=== PATIENT | male | born 1975 | race Caucasian/White ===

== ENCOUNTER 2018-07-14 11:19 | Inpatient (IN) | payer MEDICAID ==
[~2018-07-14] VITALS: Ht 160 cm; Wt 43.0 kg
[2018-07-14 11:54] LABS: HEMATOCRIT 40.8 % (41-53); HEMOGLOBIN 12.9 g/dL (13.5-17.5); MEAN CORPUSCULAR HEMOGLOBIN 34.2 pg (26.0-34.0); MEAN CORPUSCULAR HGB CONC 31.6 G/dL (31.0-37.0); MEAN CORPUSCULAR VOLUME 108 fL (80-100); PLATELET COUNT (AUTO) 286 K/uL (150-450); RED BLOOD CELL COUNT(AUTO) 3.78 MIL/uL (4.50-5.90); RED CELL DISTRIBUTION WIDTH 13.5 % (11.5-14.5)
[2018-07-14 11:55] LABS: ABG A-A DIFF O2 39.4 mmHg (10-20.0); ABG BASE EXCESS -25.8 mmol/L (-2.0-3.0); ABG CARBOXYHEMOGLOBIN 0.7 % (0.0-1.5); ABG METHEMOGLOBIN 0.3 % (0.0-1.5); ABG OXYGEN CONTENT 17.3 mL/dL (15.0-23.0); ABG OXYGEN SATURATION 95.8 % (95.0-98.0); ABG OXYHEMOGLOBIN 94.8 % (94.0-100.0); ABG PH 7.121 (7.35-7.450); ABG TOTAL HEMOGLOBIN 12.9 G/dL (12.0-18.0); PO2, ARTERIAL BG 97.1 mmHg (88.0-96.0); SOURCE, BLOOD GAS ARTERIAL; TEMPERATURE, FAHRENHEIT, BG 97.4 FAHREN (96.0-98.6)
[2018-07-14 11:56] LABS: ABG HCO3 7.9 mmol/L (22.0-26.0); ABG PCO2 11 mmHg (35-45); SITE, BLOOD GAS LFT RADIAL
[2018-07-14] MEDS ORDERED: SODIUM CHLORIDE 0.9% 1,000 ML IV ONE (12:00)
[2018-07-14] MEDS ORDERED: INSULIN REGULAR, HUMAN 100 UNITS/ML IVP ONE (12:00)
[2018-07-14] MEDS ORDERED: INSULIN REGULAR, HUMAN 100 UNITS in SODIUM CHLORIDE 0.9% 99 ML IV PRN ×4 (12:08→22:19)
[2018-07-14] MEDS ORDERED: SODIUM CHLORIDE 0.45% 1,000 ML IV PRN ×2 (12:08→22:19)
[2018-07-14] MEDS ORDERED: POTASSIUM CHLORIDE 40 MEQ in SODIUM CHLORIDE 0.45% 1,000 ML IV PRN ×2 (12:08→22:19)
[2018-07-14] MEDS ORDERED: POTASSIUM CHL 20 MEQ/0.45% NS 1,000 ML IV PRN ×2 (12:08→22:19)
[2018-07-14] MEDS ORDERED: DEXTROSE 5%-0.45% SODIUM CHL 1,000 ML IV PRN ×2 (12:08→22:19)
[2018-07-14 12:10] LABS: ALBUMIN 3.4 g/dL (3.4-5.0); BILIRUBIN,TOTAL 0.7 mg/dL (0.1-1.0); CALCIUM, TOTAL 9.6 mg/dL (8.8-10.5); CREATININE 1.38 mg/dL (0.60-1.30); POTASSIUM 4.1 mmol/L (3.5-5.1); TOTAL PROTEIN, SERUM 9.2 g/dL (6.4-8.2)
[2018-07-14] MEDS ORDERED: DEXTROSE 50%-WATER 25 GM/50 ML SYRINGE IVP PRN ×2 (12:15→22:30)
[2018-07-14] MEDS ORDERED: SODIUM BICARBONATE [ADULT] 8.4% 50 MEQ/50 ML SYRINGE IVP ONE (12:15)
[2018-07-14] MEDS ORDERED: INSULIN REGULAR, HUMAN 100 UNITS/ML IVP PRN ×2 (12:15→22:30)
[2018-07-14 12:32] LABS: BAND NEUTROPHILS % (MANUAL) 17 % (0-5); LYMPHOCYTES % (MANUAL) 7 % (22-44); METAMYELOCYTES % 1 % (0-0); MONOCYTES % (MANUAL) 7 % (2-9); SEGMENTED NEUTROPHILS % 68 % (40-70)
[2018-07-14 12:34] LABS: INR 0.9 (0.9-1.1); PROTHROMBIN TIME 9.4 SEC (9.4-11.6)
[2018-07-14] MEDS: SODIUM CHLORIDE 0.9% 1,000 ML IV SCH ×3 (12:35→22:00)
[2018-07-14] MEDS ORDERED: CefTRIAXone SODIUM 2 GM in DEXTROSE 5%-WATER 50 ML IV ONE (13:00)
[2018-07-14 13:22] LABS: GLUCOSE, URINE (UA) >=1000 mg/dL (NEGATIVE); KETONES,URINE >=80 mg/dL (NEGATIVE); LEUKOCYTE ESTERASE ,URINE NEGATIVE (NEGATIVE); NITRATE,URINE NEGATIVE (NEGATIVE); PROTEIN,URINE SEE CONFIRM (NEGATIVE); UROBILINOGEN,URINE 0.2 mg/dL (<=1.0)
[2018-07-14] MEDS ORDERED: AZITHROMYCIN 500 MG/NS 250 ML IV ONE (13:30)
[2018-07-14 13:52] LABS: INFLUENZA TYPE A NEGATIVE FOR TYPE A (NEGATIVE); INFLUENZA TYPE B NEGATIVE FOR TYPE B (NEGATIVE)
[2018-07-14 13:53] LABS: APPEARANCE,URINE HAZY (CLEAR); BILIRUBIN,URINE PRELIM. POSITIVE (NEGATIVE)
[2018-07-14 13:54] LABS: BACTERIA,URINE None Seen /HPF (None Seen); OCCULT BLOOD,URINE SMALL (NEGATIVE); RBC,URINE 0-2 /HPF (0-2); SULFOSALICYLIC ACID,URINE 1+ (Negative); WBC,URINE None Seen /HPF (0-5)
[2018-07-14 13:55] LABS: FINE GRANULAR CASTS,URINE 0-2 /LPF (None Seen)
[2018-07-14 14:02] LABS: GLUCOSE,POINT OF CARE 423 MG/DL (70-110)
[2018-07-14 14:02] LABS: GLUCOSE,POINT OF CARE 393 MG/DL (70-110)
[2018-07-14 15:19] LABS: GLUCOSE,POINT OF CARE 328 MG/DL (70-110)
[2018-07-14 16:09] LABS: GLUCOSE,POINT OF CARE 201 MG/DL (70-110)
[2018-07-14 16:45] LABS: ANION GAP 18 mmol/L (8-16); CALCIUM, TOTAL 7.9 mg/dL (8.8-10.5); CARBON DIOXIDE 20 mmol/L (22-29); CHLORIDE 103 mmol/L (98-107); CREATININE 1.03 mg/dL (0.60-1.30); GLOMERULAR FILTR. RATE CALC > 60 mL/min (>60); GLUCOSE,RANDOM 219 mg/dL (70-110); SODIUM SERUM 141 mmol/L (136-145); UREA NITROGEN, BLOOD 16 mg/dL (7-18)
[2018-07-14 16:53] LABS: POTASSIUM 2.7 mmol/L (3.5-5.1)
[2018-07-14] MEDS ORDERED: POTASSIUM CHLORIDE 20 MEQ ER TABLET PO ONE (17:15)
[2018-07-14] MEDS ORDERED: ACETAMINOPHEN 500 MG TABLET PO ONE (17:30)
[2018-07-14 19:58] LABS: ANION GAP 11 mmol/L (8-16); CALCIUM, TOTAL 7.7 mg/dL (8.8-10.5); CARBON DIOXIDE 24 mmol/L (22-29); CHLORIDE 106 mmol/L (98-107); CREATININE 0.84 mg/dL (0.60-1.30); GLOMERULAR FILTR. RATE CALC > 60 mL/min (>60); GLUCOSE,RANDOM 110 mg/dL (70-110); POTASSIUM 3.1 mmol/L (3.5-5.1); SODIUM SERUM 141 mmol/L (136-145); UREA NITROGEN, BLOOD 14 mg/dL (7-18)
[2018-07-14] MEDS ORDERED: MAGNESIUM SULFATE 1 GM in DEXTROSE 5%-WATER 50 ML IV ONE (20:45)
[2018-07-14 20:50] VITALS: BP 95/63
[2018-07-14] MEDS ORDERED: SODIUM CHLORIDE 0.9% 250 ML IV ONE (21:27)
[2018-07-14] MEDS ORDERED: 0.9% SODIUM CHLORIDE 10 ML SYRINGE IVP PRN (22:00)
[2018-07-14] MEDS ORDERED: ONDANSETRON HCL 4 MG/2 ML VIAL IVP PRN (22:00)
[2018-07-14] MEDS ORDERED: ZOLPIDEM TARTRATE 5 MG TABLET PO PRN (22:00)
[2018-07-14] MEDS ORDERED: SODIUM CHLORIDE 0.9% 1,000 ML IV SCH (22:19)
[2018-07-14] MEDS: PANTOPRAZOLE SODIUM 40 MG/VIAL IVP SCH (22:25)
[2018-07-14] MEDS ORDERED: POTASSIUM CHLORIDE 10% 40 MEQ/30 ML LIQUID UDCUP PO PRN ×2 (23:15)
[2018-07-14] MEDS ORDERED: POTASSIUM CHLORIDE 20 MEQ ER TABLET PO PRN ×2 (23:15)
[2018-07-15] VITALS (8 sets, daily range): BP systolic 89–126; BP diastolic 60–83
[2018-07-15] MEDS: ACETAMINOPHEN 325 MG TABLET PO PRN ×2 (00:05→15:21)
[2018-07-15 01:07] LABS: ANION GAP 11 mmol/L (8-16); CALCIUM, TOTAL 7.3 mg/dL (8.8-10.5); CARBON DIOXIDE 21 mmol/L (22-29); CHLORIDE 105 mmol/L (98-107); CREATININE 0.69 mg/dL (0.60-1.30); GLOMERULAR FILTR. RATE CALC > 60 mL/min (>60); GLUCOSE,RANDOM 197 mg/dL (70-110); POTASSIUM 3.6 mmol/L (3.5-5.1); SODIUM SERUM 137 mmol/L (136-145); UREA NITROGEN, BLOOD 14 mg/dL (7-18)
[2018-07-15 05:04] LABS: ABG A-A DIFF O2 48.8 mmHg (10-20.0); ABG BASE EXCESS -4.9 mmol/L (-2.0-3.0); ABG CARBOXYHEMOGLOBIN 0.3 % (0.0-1.5); ABG METHEMOGLOBIN 0.2 % (0.0-1.5); ABG OXYGEN SATURATION 94.1 % (95.0-98.0); ABG OXYHEMOGLOBIN 93.6 % (94.0-100.0); ABG PCO2 29 mmHg (35-45); ABG PH 7.442 (7.35-7.450); ABG TOTAL HEMOGLOBIN 9.8 G/dL (12.0-18.0); PO2, ARTERIAL BG 66.4 mmHg (88.0-96.0); SOURCE, BLOOD GAS ARTERIAL; TEMPERATURE, FAHRENHEIT, BG 98.8 FAHREN (96.0-98.6)
[2018-07-15 05:05] LABS: SITE, BLOOD GAS LFT RADIAL
[2018-07-15 05:06] LABS: O2 DEVICE,BLOOD GAS ROOM AIR (ROOM AIR)
[2018-07-15] MEDS: SODIUM CHLORIDE 0.9% 1,000 ML IV SCH (05:59)
[2018-07-15 06:46] LABS: ALANINE AMINOTRANSFERASE 36 U/L (12-78); ALKALINE PHOSPHATASE 134 U/L (46-116); ANION GAP 8 mmol/L (8-16); ASPARTATE AMINOTRANSFERASE 60 U/L (15-37); BILIRUBIN,TOTAL 0.2 mg/dL (0.1-1.0); CALCIUM, TOTAL 7.8 mg/dL (8.8-10.5); CARBON DIOXIDE 22 mmol/L (22-29); CHLORIDE 106 mmol/L (98-107); CREATININE 0.67 mg/dL (0.60-1.30); GLOMERULAR FILTR. RATE CALC > 60 mL/min (>60); GLUCOSE,RANDOM 110 mg/dL (70-110); PHOSPHORUS 1.7 mg/dL (2.5-4.9); SODIUM SERUM 136 mmol/L (136-145); UREA NITROGEN, BLOOD 14 mg/dL (7-18)
[2018-07-15] MEDS: ENOXAPARIN SODIUM 40 MG/0.4 ML PF SYRINGE SQ SCH (08:35)
[2018-07-15] MEDS: PANTOPRAZOLE SODIUM 40 MG/VIAL IVP SCH ×2 (08:35→21:13)
[2018-07-15 08:50] LABS: GLUCOSE,POINT OF CARE 98 MG/DL (70-110)
[2018-07-15 08:51] LABS: GLUCOSE,POINT OF CARE 158 MG/DL (70-110)
[2018-07-15 08:51] LABS: GLUCOSE,POINT OF CARE 108 MG/DL (70-110)
[2018-07-15 08:51] LABS: GLUCOSE,POINT OF CARE 108 MG/DL (70-110)
[2018-07-15 08:51] LABS: GLUCOSE,POINT OF CARE 179 MG/DL (70-110)
[2018-07-15 08:51] LABS: GLUCOSE,POINT OF CARE 83 MG/DL (70-110)
[2018-07-15 08:51] LABS: GLUCOSE,POINT OF CARE 144 MG/DL (70-110)
[2018-07-15 08:51] LABS: GLUCOSE,POINT OF CARE 191 MG/DL (70-110)
[2018-07-15 08:51] LABS: GLUCOSE,POINT OF CARE 203 MG/DL (70-110)
[2018-07-15 08:51] LABS: GLUCOSE,POINT OF CARE 129 MG/DL (70-110)
[2018-07-15 08:51] LABS: GLUCOSE,POINT OF CARE 78 MG/DL (70-110)
[2018-07-15 08:52] LABS: GLUCOSE,POINT OF CARE 98 MG/DL (70-110)
[2018-07-15 08:52] LABS: GLUCOSE,POINT OF CARE 104 MG/DL (70-110)
[2018-07-15 08:56] LABS: GLUCOSE,POINT OF CARE 156 MG/DL (70-110)
[2018-07-15 08:57] LABS: GLUCOSE,POINT OF CARE 132 MG/DL (70-110)
[2018-07-15 08:57] LABS: GLUCOSE,POINT OF CARE 151 MG/DL (70-110)
[2018-07-15 09:26] LABS: ANION GAP 12 mmol/L (8-16); CALCIUM, TOTAL 8.3 mg/dL (8.8-10.5); CARBON DIOXIDE 18 mmol/L (22-29); CHLORIDE 104 mmol/L (98-107); CREATININE 0.58 mg/dL (0.60-1.30); GLOMERULAR FILTR. RATE CALC > 60 mL/min (>60); GLUCOSE,RANDOM 167 mg/dL (70-110); POTASSIUM 4.2 mmol/L (3.5-5.1); SODIUM SERUM 134 mmol/L (136-145); UREA NITROGEN, BLOOD 12 mg/dL (7-18)
[2018-07-15] MEDS: AZITHROMYCIN 500 MG/NS 250 ML IV SCH (09:30)
[2018-07-15] MEDS: MULTIVITAMINS WITH MINERALS, THERAPEUTIC TABLET PO SCH (09:30)
[2018-07-15] MEDS: CefTRIAXone 1 GM/DEXTROSE 50 ML IV SCH (09:30)
[2018-07-15] MEDS ORDERED: SODIUM CHLORIDE 0.9% 1,000 ML IV ONE (09:30)
[2018-07-15 09:33] LABS: BASOPHILS % (AUTO) 0.4 % (0.0-2.0); EOSINOPHILS % (AUTO) 0.1 % (1.0-6.0); HEMOGLOBIN 9.4 g/dL (13.5-17.5); LYMPHOCYTES # (AUTO) 1.3 K/uL (1.0-4.8); LYMPHOCYTES % (AUTO) 8.8 % (22.0-44.0); MEAN CORPUSCULAR HEMOGLOBIN 34.1 pg (26.0-34.0); MEAN CORPUSCULAR HGB CONC 33.4 G/dL (31.0-37.0); MEAN CORPUSCULAR VOLUME 102 fL (80-100); MONOCYTES # (AUTO) 0.6 K/uL (0.1-1.0); MONOCYTES % (AUTO) 4.3 % (2.0-9.0); NEUTROPHILS # (AUTO) 12.6 K/uL (1.8-7.7); PLATELET COUNT (AUTO) 197 K/uL (150-450); RED BLOOD CELL COUNT(AUTO) 2.75 MIL/uL (4.50-5.90); RED CELL DISTRIBUTION WIDTH 12.8 % (11.5-14.5)
[2018-07-15 09:34] LABS: NEUTROPHILS % (AUTO) 86.4 % (40.0-70.0)
[2018-07-15] MEDS ORDERED: DEXTROSE 50%-WATER 25 GM/50 ML SYRINGE IVP PRN (10:15)
[2018-07-15] MEDS: POTASSIUM PHOS/SODIUM PHOS MIXTURE 1 POWDER PACKET PO SCH ×2 (12:00→23:36)
[2018-07-15] MEDS: INSULIN LISPRO 100 UNITS/ML SQ PRN ×3 (12:19→21:13)
[2018-07-15 12:44] LABS: GLUCOSE,POINT OF CARE 268 MG/DL (70-110)
[2018-07-15 12:44] LABS: GLUCOSE,POINT OF CARE 134 MG/DL (70-110)
[2018-07-15 12:44] LABS: GLUCOSE,POINT OF CARE 287 MG/DL (70-110)
[2018-07-15 15:15] LABS: ANION GAP 12 mmol/L (8-16); CALCIUM, TOTAL 7.5 mg/dL (8.8-10.5); CARBON DIOXIDE 20 mmol/L (22-29); CHLORIDE 100 mmol/L (98-107); CREATININE 0.81 mg/dL (0.60-1.30); GLOMERULAR FILTR. RATE CALC > 60 mL/min (>60); GLUCOSE,RANDOM 295 mg/dL (70-110); POTASSIUM 3.7 mmol/L (3.5-5.1); SODIUM SERUM 132 mmol/L (136-145); UREA NITROGEN, BLOOD 10 mg/dL (7-18)
[2018-07-15 17:04] LABS: GLUCOSE,POINT OF CARE 265 MG/DL (70-110)
[2018-07-15 20:14] LABS: GLUCOMETER DEV NAME(LOC) 6N.2; GLUCOSE,POINT OF CARE 110 MG/DL (70-110)
[2018-07-16 02:19] LABS: GLUCOMETER DEV NAME(LOC) 6N.2; GLUCOSE,POINT OF CARE 274 MG/DL (70-110)
[2018-07-16 04:33] VITALS: BP 110/70
[2018-07-16] MEDS: INSULIN LISPRO 100 UNITS/ML SQ PRN ×4 (06:22→20:55)
[2018-07-16 06:39] LABS: GLUCOMETER DEV NAME(LOC) 6N.1; GLUCOSE,POINT OF CARE 233 MG/DL (70-110)
[2018-07-16 08:00] VITALS: BP 100/68
[2018-07-16] MEDS: MULTIVITAMINS WITH MINERALS, THERAPEUTIC TABLET PO SCH (08:30)
[2018-07-16] MEDS: ENOXAPARIN SODIUM 40 MG/0.4 ML PF SYRINGE SQ SCH (08:30)
[2018-07-16] MEDS: POTASSIUM PHOS/SODIUM PHOS MIXTURE 1 POWDER PACKET PO SCH ×2 (08:31→20:45)
[2018-07-16] MEDS: CefTRIAXone 1 GM/DEXTROSE 50 ML IV SCH (08:31)
[2018-07-16] MEDS ORDERED: SODIUM CHLORIDE 0.9% 250 ML IV ONE (08:57)
[2018-07-16] MEDS: AZITHROMYCIN 500 MG/NS 250 ML IV SCH (09:05)
[2018-07-16] MEDS: ASPIRIN 81 MG CHEWABLE TABLET PO SCH (09:05)
[2018-07-16] MEDS: PANTOPRAZOLE SODIUM 40 MG/VIAL IVP SCH ×2 (11:00→21:31)
[2018-07-16 11:38] VITALS: BP 102/77
[2018-07-16 12:08] LABS: GLUCOMETER DEV NAME(LOC) 6N.2; GLUCOSE,POINT OF CARE 369 MG/DL (70-110)
[2018-07-16 15:24] VITALS: BP 101/65
[2018-07-16] MEDS: MetFORMIN HCL 500 MG TABLET PO SCH (17:41)
[2018-07-16 19:31] VITALS: BP 104/66
[2018-07-16] MEDS ORDERED: ATORVASTATIN CALCIUM 20 MG TABLET PO SCH (21:00)
[2018-07-16 23:57] VITALS: BP 104/73
[2018-07-17 04:35] VITALS: BP 111/64
[2018-07-17 05:42] LABS: BASOPHILS % (AUTO) 0.1 % (0.0-2.0); EOSINOPHILS % (AUTO) 0.2 % (1.0-6.0); HEMATOCRIT 29.8 % (41-53); HEMOGLOBIN 10.2 g/dL (13.5-17.5); LYMPHOCYTES % (AUTO) 14.5 % (22.0-44.0); MEAN CORPUSCULAR HEMOGLOBIN 34.5 pg (26.0-34.0); MEAN CORPUSCULAR HGB CONC 34.1 G/dL (31.0-37.0); MEAN CORPUSCULAR VOLUME 101 fL (80-100); MONOCYTES # (AUTO) 0.6 K/uL (0.1-1.0); MONOCYTES % (AUTO) 8.4 % (2.0-9.0); NEUTROPHILS % (AUTO) 76.8 % (40.0-70.0); PLATELET COUNT (AUTO) 215 K/uL (150-450); RED BLOOD CELL COUNT(AUTO) 2.95 MIL/uL (4.50-5.90); RED CELL DISTRIBUTION WIDTH 12.8 % (11.5-14.5)
[2018-07-17] MEDS: INSULIN LISPRO 100 UNITS/ML SQ PRN ×2 (05:55→11:52)
[2018-07-17 07:59] VITALS: BP 99/52
[2018-07-17 08:00] VITALS: BP 98/66
[2018-07-17] MEDS: MetFORMIN HCL 500 MG TABLET PO SCH (08:28)
[2018-07-17] MEDS: ASPIRIN 81 MG CHEWABLE TABLET PO SCH (08:28)
[2018-07-17] MEDS: MULTIVITAMINS WITH MINERALS, THERAPEUTIC TABLET PO SCH (08:28)
[2018-07-17] MEDS: CefTRIAXone 1 GM/DEXTROSE 50 ML IV SCH (08:29)
[2018-07-17] MEDS: ENOXAPARIN SODIUM 40 MG/0.4 ML PF SYRINGE SQ SCH (08:29)
[2018-07-17] MEDS: PANTOPRAZOLE SODIUM 40 MG/VIAL IVP SCH (08:29)
[2018-07-17] MEDS: POTASSIUM PHOS/SODIUM PHOS MIXTURE 1 POWDER PACKET PO SCH (08:30)
[2018-07-17] MEDS: AZITHROMYCIN 500 MG/NS 250 ML IV SCH (09:26)
[2018-07-17 10:48] LABS: GLUCOMETER DEV NAME(LOC) 6N.1; GLUCOSE,POINT OF CARE 230 MG/DL (70-110)
[2018-07-17 10:48] LABS: GLUCOMETER DEV NAME(LOC) 6N.1; GLUCOSE,POINT OF CARE 296 MG/DL (70-110)
[2018-07-17 10:51] LABS: GLUCOMETER DEV NAME(LOC) 6N.1; GLUCOSE,POINT OF CARE 257 MG/DL (70-110)
[2018-07-17 10:54] LABS: ANION GAP 11 mmol/L (8-16); CALCIUM, TOTAL 8.4 mg/dL (8.8-10.5); CARBON DIOXIDE 25 mmol/L (22-29); CHLORIDE 96 mmol/L (98-107); GLOMERULAR FILTR. RATE CALC > 60 mL/min (>60); GLUCOSE,RANDOM 338 mg/dL (70-110); POTASSIUM 4.6 mmol/L (3.5-5.1); SODIUM SERUM 132 mmol/L (136-145); UREA NITROGEN, BLOOD 6 mg/dL (7-18)
[2018-07-17 11:35] VITALS: BP 112/55
[2018-07-17] MEDS ORDERED: METF-445 PO (12:32)
[2018-07-17] MEDS ORDERED: ASPI81 PO (12:33)
[2018-07-17] MEDS ORDERED: ATOR20TA86 PO (12:33)
[2018-07-17] MEDS ORDERED: AZIT250T9 PO (12:34)
[2018-07-17 17:39] LABS: GLUCOMETER DEV NAME(LOC) 6N.2; GLUCOSE,POINT OF CARE 300 MG/DL (70-110)
== END 2018-07-17 15:36 | disposition home health service (06) | DRG 720 ==
LOC: EMS 11:20 → ICU 17:55 → 6N 07-15 17:16
PROVIDERS: ADMIT Internal Medicine; ATTEND Internal Medicine
DX: A41.9 Sepsis, unspecified organism (principal); R64 Cachexia; E10.10 Type 1 diabetes mellitus with ketoacidosis without coma; J18.9 Pneumonia, unspecified organism; E86.0 Dehydration; D53.9 Nutritional anemia, unspecified; Z91.14 Patient's other noncompliance with medication regimen; Z68.1 Body mass index [BMI] 19.9 or less, adult; Z79.4 Long term (current) use of insulin; Z86.73 Personal history of transient ischemic attack (TIA), and cerebral infarction without residual deficits
CPT/HCPCS: 70450; 82805; 82948; 83605; 83735; 84100; 84145; 87040; 87081; 87804; 93005; 96365; 96366; 96368; 96375; 96376; 97162; 99291; C9113; G0378; J0456; J0696; J1650; J1815; J3475; J3480; J3490; J7030; J7050; J7060